=== PATIENT | female | born 1950 | race Caucasian/White ===

== ENCOUNTER → 2016-08-03 | Outpatient (CLI) | payer MEDICAID ==
--- NOTE | 2016-08-03 13:26 | US ---
EXAMINATION: Nonvascular soft tissue ultrasound of the right popliteal fossa HISTORY: Pain COMPARISON: None TECHNIQUE: Grayscale and color Doppler images obtained in the region of concern. FINDINGS: There is no abnormal mass or fluid collection noted. No Shepherd's cyst or aneurysm. Normal-a ppearing musculature is noted within the region of pain. IMPRESSION: No sonographic abnormality noted within the right popliteal fossa.
== END ==
LOC: MW.US 10:26
PROVIDERS: ATTEND Family Medicine
DX: M25.561 Pain in right knee (principal)
CPT/HCPCS: 76881-26-RT; 76881-RT

== ENCOUNTER 2016-08-09 14:43 | Emergency (ER) | payer MEDICAID ==
[2016-08-09] MEDS ORDERED: Ketorolac 30 MG/ML SDV IVPUSH ONE (15:07)
[2016-08-09] MEDS ORDERED: Sodium Chloride 0.9% 1,000 ML IV ONE (15:07)
[2016-08-09] MEDS ORDERED: Ondansetron 4 MG/2 ML SDV IVPUSH ONE ×2 (15:07→15:57)
--- NOTE | 2016-08-09 15:07 | EDM.PDOC ---
ED HPI GI/ABDOMINAL - General Chief Complaint: Abdominal Pain Stated Complaint: STOMACH PAIN Time Seen by Provider: 08/09/16 15:01 Source of Information: Reports: Patient History Limitations: Reports: No limitations - History of Present Illness INITIAL COMMENTS - FREE TEXT/NARRATIVE: History of present illness: [66-year-old female presenting with a history of chronic progressive abdominal pain. She indicates that she has not been that concerned with address and as her PCP because sister had been somewhat low grade but over the last few days has gotten significantly worse, she feels bloated, with abdominal pain throughout the entire abdomen nonspecific to locale but she also indicates when she stands she has a significant amount of pelvic pressure as well. Patient indicates when she lies down at night she feels like she has this pressure building up in her chest and it makes her neck swell. She states that this last symptom has caused her a significant amount of anxiety and she would like to know what is going on.] Review of systems: As per history of present illness and below otherwise all systems reviewed and negative. Past medical history: As per history of present illness and as reviewed below otherwise noncontributory. Surgical history: As per history of present illness and as reviewed below otherwise noncontributory. Social history: No reported history of drug or alcohol abuse. Family history: As per history of present illness and as reviewed below otherwise noncontributory. Physical exam: HEENT: Atraumatic, normocephalic, pupils reactive, negative for conjunctival pallor or scleral icterus, mucous membranes moist, throat clear, neck supple, nontender, trachea midline. Lungs: Clear to auscultation, breath sounds equal bilaterally, chest nontender. Heart: S1S2, regular, negative for clicks, rubs, or JVD. Abdomen: Soft, nondistended, nontender. Negative for masses or hepatosplenomegaly. Negative for costovertebral tenderness. Pelvis: Stable nontender. Genitourinary: Deferred. Rectal: Deferred. Extremities: Atraumatic, negative for cords or calf pain. Neurovascular unremarkable. Neuro: Awake, alert, oriented. Cranial nerves II through XII unremarkable. Cerebellum unremarkable. Motor and sensory unremarkable throughout. Exam nonfocal. At 1550 patient indicated that she was having left arm pain, indicated she felt quite anxious, and indicated that she felt like her blood pressure was high because of the pain. EKG, as well as nitro paste and nitroglycerin sublingual as as well as morphine and Zofran. Patient has a significant amount of anxiety based on numerous factors inclusive finances, health status, and some false beliefs in risks related to medication and her parents chronic ill health secondary to diabetes. Patient indicates that the side effects of the medicine killed her parents. Risk benefit of various medication interventions discussed inclusive of hypertensive medicines and genetic propensity for hypertension but clearly had run in her family. Patient knowledge that she didn't desire to suffer from diseases which are the end result of uncontrolled hypertension inclusive of renal failure that her mother struggled with and agreed to take a blood pressure medicine here and followup with the primary care provider for outpatient management of a chronic disease process. Diagnostics: [CBC, CMP, troponin, EKG, chest x-ray, UA] Therapeutics: [Morphine, Zofran, IV fluid,] Impression: [Hypertension, anxiety] Plan: [Meds/followup] Definitive disposition and diagnosis as appropriate pending reevaluation and review of above. - Related Data Allergies/ADRs: Allergies Allergy/AdvReac Type Severity Reaction Status Date / Time cephalexin [From Keflex] Allergy Swelling Verified 08/09/16 15:06 codeine Allergy Headache Verified 08/09/16 15:06 Home Meds: Home Meds FLUoxetine [PROzac] 0 mg PO ASDIRECTED 08/09/16 [History] Metoprolol Tartrate 25 mg PO BID #28 tablet 08/09/16 [Rx] OLANZapine [Olanzapine] 5 mg PO DAILY 08/09/16 [History] Zolpidem Tartrate [Zolpidem Tartrate] 10 mg PO BEDTIME 08/09/16 [History] busPIRone [Buspar] 30 mg PO BID 08/09/16 [History] ED ROS GENERAL - Review of Systems Review Of Systems: See Below (The history of present illness) ED EXAM, GI/ABD - Physical Exam Exam: See Below (See history of present illness) Course - Vital Signs Last Recorded V/S: Last Vital Signs Temp 36.5 C 08/09/16 15:11 Pulse 81 08/09/16 18:09 Resp 18 08/09/16 15:11 BP 167/98 H 08/09/16 18:09 Pulse Ox 97 08/09/16 15:11 - Orders/Labs/Meds Orders: Active Orders 24 hr Category Date Time Status EKG Documentation Completion [RC] STAT Care 08/09/16 15:56 Active Labs: Laboratory Tests 08/09/16 08/09/16 08/09/16 Range/Units 15:41 15:41 15:41 WBC 6.24 (4.0-11.0) K/uL RBC 3.91 L (4.30-5.90) M/uL Hgb 12.5 (12.0-16.0) g/dL Hct 38.3 (36.0-46.0) % MCV 98.0 (80.0-98.0) fL MCH 32.0 (27.0-32.0) pg MCHC 32.6 (31.0-37.0) g/dL RDW Std Deviation 44.8 (28.0-62.0) fl RDW Coeff of Subhash 13 (11.0-15.0) % Plt Count 200 (150-400) K/uL MPV 10.50 (7.40-12.00) fL Neut % (Auto) 49.4 (48.0-80.0) % Lymph % (Auto) 41.8 H (16.0-40.0) % [place] % (Auto) 6.1 (0.0-15.0) % Eos % (Auto) 2.4 (0.0-7.0) % Baso % (Auto) 0.3 (0.0-1.5) % Neut # (Auto) 3.1 (1.4-5.7) K/uL Lymph # (Auto) 2.6 H (0.6-2.4) K/uL [place] # (Auto) 0.4 (0.0-0.8) K/uL Eos # (Auto) 0.2 (0.0-0.7) K/uL Baso # (Auto) 0.0 (0.0-0.1) K/uL Nucleated RBC % 0.0 /100WBC Nucleated RBCs # 0 K/uL Sodium 144 (136-146) mmol/L Potassium 3.7 (3.5-5.1) mmol/L Chloride 113 H (98-110) mmol/L Carbon Dioxide 21 (21-31) mmol/L BUN 13 (6.0-23.0) mg/dL Creatinine 0.8 (0.6-1.5) mg/dL Est Cr Clr Drug Dosing 58.77 mL/min Estimated GFR (MDRD) > 60.0 ml/min Glucose 95 (60-110) mg/dL Calcium 8.7 L (8.8-10.8) mg/dL Total Bilirubin 0.3 (0.1-1.5) mg/dL AST 28 (5-40) IU/L ALT 48 (8-54) IU/L Alkaline Phosphatase 68 (40-150) Troponin I < 0.10 (0.0-0.29) NG/ML Total Protein 6.8 (6.0-8.0) g/dL Albumin 3.9 (3.4-4.8) g/dL Globulin 2.9 (2.0-3.5) g/dL Albumin/Globulin Ratio 1.3 (1.3-2.8) Amylase 53 (10-90) U/L Lipase 55 (7-80) U/L Urine Color Urine Appearance Urine pH (5.0-8.0) Ur Specific [place] (1.001-1.035) Urine Protein (NEGATIVE) mg/dL Urine Glucose (UA) (NEGATIVE) mg/dL Urine Ketones (NEGATIVE) mg/dL Urine Occult Blood (NEGATIVE) Urine Nitrite (NEGATIVE) Urine Bilirubin (NEGATIVE) Urine Urobilinogen (<2.0) EU/dL Ur Leukocyte Esterase (NEGATIVE) Urine RBC (0-2/HPF) Urine WBC (0-5/HPF) Ur Epithelial Cells (NONE-FEW) Urine Bacteria (NEGATIVE) Urine Mucus (NONE-MOD) 08/09/16 Range/Units 15:50 WBC (4.0-11.0) K/uL RBC (4.30-5.90) M/uL Hgb (12.0-16.0) g/dL Hct (36.0-46.0) % MCV (80.0-98.0) fL MCH (27.0-32.0) pg MCHC (31.0-37.0) g/dL RDW Std Deviation (28.0-62.0) fl RDW Coeff of Subhash (11.0-15.0) % Plt Count (150-400) K/uL MPV (7.40-12.00) fL Neut % (Auto) (48.0-80.0) % Lymph % (Auto) (16.0-40.0) % [place] % (Auto) (0.0-15.0) % Eos % (Auto) (0.0-7.0) % Baso % (Auto) (0.0-1.5) % Neut # (Auto) (1.4-5.7) K/uL Lymph # (Auto) (0.6-2.4) K/uL [place] # (Auto) (0.0-0.8) K/uL Eos # (Auto) (0.0-0.7) K/uL Baso # (Auto) (0.0-0.1) K/uL Nucleated RBC % /100WBC Nucleated RBCs # K/uL Sodium (136-146) mmol/L Potassium (3.5-5.1) mmol/L Chloride (98-110) mmol/L Carbon Dioxide (21-31) mmol/L BUN (6.0-23.0) mg/dL Creatinine (0.6-1.5) mg/dL Est Cr Clr Drug Dosing mL/min Estimated GFR (MDRD) ml/min Glucose (60-110) mg/dL Calcium (8.8-10.8) mg/dL Total Bilirubin (0.1-1.5) mg/dL AST (5-40) IU/L ALT (8-54) IU/L Alkaline Phosphatase (40-150) Troponin I (0.0-0.29) NG/ML Total Protein (6.0-8.0) g/dL Albumin (3.4-4.8) g/dL Globulin (2.0-3.5) g/dL Albumin/Globulin Ratio (1.3-2.8) Amylase (10-90) U/L Lipase (7-80) U/L Urine Color YELLOW Urine Appearance CLEAR Urine pH 6.0 (5.0-8.0) Ur Specific [place] 1.020 (1.001-1.035) Urine Protein NEGATIVE (NEGATIVE) mg/dL Urine Glucose (UA) NEGATIVE (NEGATIVE) mg/dL Urine Ketones NEGATIVE (NEGATIVE) mg/dL Urine Occult Blood NEGATIVE (NEGATIVE) Urine Nitrite NEGATIVE (NEGATIVE) Urine Bilirubin NEGATIVE (NEGATIVE) Urine Urobilinogen 0.2 (<2.0) EU/dL Ur Leukocyte Esterase NEGATIVE (NEGATIVE) Urine RBC 0-1 (0-2/HPF) Urine WBC 0-2 (0-5/HPF) Ur Epithelial Cells FEW (NONE-FEW) Urine Bacteria FEW (NEGATIVE) Urine Mucus LIGHT (NONE-MOD) Meds: Medications Discontinued Medications Generic Name Dose Route Start Last Admin Trade Name Freq PRN Reason Stop Dose Admin Aspirin 324 mg 08/09/16 15:56 08/09/16 16:22 Aspirin PO 08/09/16 15:57 324 mg ONETIME ONE Administration Al Hydroxide/Mg Hydroxide 15 0 ml 08/09/16 15:15 08/09/16 16:02 ml/ Metoclopramide HCl 5 mg/ PO 08/09/16 15:16 1 each Lidocaine HCl 5 ml ONETIME ONE Administration Famotidine 20 mg 08/09/16 15:16 08/09/16 16:00 Pepcid IVPUSH 08/09/16 15:17 20 mg ONETIME ONE Administration Sodium Chloride 1,000 mls @ 999 mls/hr 08/09/16 15:07 08/09/16 15:53 Normal Saline IV 08/09/16 16:07 999 mls/hr STAT ONE Administration Ketorolac Tromethamine 30 mg 08/09/16 15:07 08/09/16 16:27 Toradol IVPUSH 08/09/16 15:08 30 mg ONETIME ONE Administration Lorazepam 1 mg 08/09/16 15:58 08/09/16 16:31 Ativan IVPUSH 08/09/16 15:59 1 mg ONETIME ONE Administration Metoprolol Succinate 50 mg 08/09/16 17:13 08/09/16 18:09 Toprol Xl PO 08/09/16 17:14 50 mg ONETIME ONE Administration Morphine Sulfate 4 mg 08/09/16 15:56 08/09/16 16:28 Morphine IV 08/09/16 15:57 Not Given ONETIME ONE Nitroglycerin 1 gm 08/09/16 15:56 08/09/16 18:09 Nitro-Bid 2% TOP 08/09/16 15:57 Not Given ONETIME ONE Nitroglycerin 0.4 mg 08/09/16 16:15 08/09/16 16:24 Nitrostat SL 08/09/16 16:26 0.4 mg Q5M PRN Administration Chest Pain Ondansetron HCl 8 mg 08/09/16 15:07 08/09/16 15:54 Zofran IVPUSH 08/09/16 15:08 8 mg ONETIME ONE Administration Ondansetron HCl 8 mg 08/09/16 15:57 08/09/16 16:01 Zofran IVPUSH 08/09/16 15:58 Not Given ONETIME ONE Departure - Departure Time of Disposition: 19:00 Disposition: Home, Self-Care 01 Condition: good Clinical Impression: Hypertension, Anxiety Prescriptions: Metoprolol Tartrate 25 mg PO BID #28 tablet Referrals: Lizbeth Figueroa MD [Primary Care Provider] - Forms: ED Department Discharge Additional Instructions: The following information is given to patients seen in the emergency department who are being discharged to home. This information is to outline your options for follow-up care. We provide all patients seen in our emergency department with a follow-up referral. The need for follow-up, as well as the timing and circumstances, are variable depending upon the specifics of your emergency department visit. If you don't have a primary care physician on staff, we will provide you with a referral. We always advise you to contact your personal physician following an emergency department visit to inform them of the circumstance of the visit and for follow-up with them and/or the need for any referrals to a consulting specialist. The emergency department will also refer you to a specialist when appropriate. This referral assures that you have the opportunity for follow-up care with a specialist. All of these measure are taken in an effort to provide you with optimal care, which includes your follow-up. Under all circumstances we always encourage you to contact your private physician who remains a resource for coordinating your care. When calling for follow-up care, please make the office aware that this follow-up is from your recent emergency room visit. If for any reason you are refused follow-up, please contact the [facility] Emergency Department at and asked to speak to the emergency department charge nurse. It has been noted to have significantly elevated blood pressure as discussed during your visit It is imperative that you monitor this outpatient and seek treatment with your primary care provider to best achieve a balance between medication and symptoms seemed to concern you Please call in the next one to 2 days with your PCP to establish a followup appointment Return to the ED as needed as discussed - My Orders Last 24 Hours: My Active Orders 08/09/16 15:56 EKG Documentation Completion [RC] STAT - Assessment/Plan Last 24 Hours: My Active Orders 08/09/16 15:56 EKG Documentation Completion [RC] STAT
[2016-08-09] MEDS ORDERED: Alum Hydrox/Mag Hydrox/Simeth 15 ML, Metoclopramide 5 MG, Lidocaine 2% 5 ML PO ONE ×3 (15:15)
[2016-08-09] MEDS ORDERED: Famotidine 20 MG/2 ML SDV IVPUSH ONE (15:16)
[2016-08-09] MEDS ORDERED: Morphine 10 MG/ML Syringe IV ONE (15:56)
[2016-08-09] MEDS ORDERED: Nitroglycerin 0.4 MG Tab.SL SL ONE (15:56)
[2016-08-09] MEDS ORDERED: Aspirin 81 MG Tab.Chew PO ONE (15:56)
[2016-08-09] MEDS ORDERED: Nitroglycerin 2% Oint 1 GM UD Packet TOP ONE (15:56)
[2016-08-09] MEDS ORDERED: LORazepam 2 MG/ML MDV IVPUSH ONE (15:58)
[2016-08-09] MEDS ORDERED: Nitroglycerin 0.4 MG Tab.SL SL PRN (16:15)
[2016-08-09 16:21] LABS: CHLORIDE,CL 113 mmol/L (98-110); SODIUM,NA 144 mmol/L (136-146)
[2016-08-09] MEDS ORDERED: Metoprolol Succinate 50 MG Tab.ER PO ONE (17:13)
[2016-08-09 19:21] VITALS: BP 185/102
== END 2016-08-09 19:10 | disposition home or self-care (01) ==
LOC: MW.ED 14:43
DX: I10 Essential (primary) hypertension (principal); F41.9 Anxiety disorder, unspecified; Z79.899 Other long term (current) drug therapy; Z88.5 Allergy status to narcotic agent; Z88.1 Allergy status to other antibiotic agents
CPT/HCPCS: 36415; 80053; 81001; 82150; 83690; 84484; 85025; 93005; 96361; 96374; 96375; 99284; A9270; J1885; J2060; J2405; J7040

== ENCOUNTER → 2016-08-09 | Outpatient (CLI) | payer MEDICAID ==
--- NOTE | 2016-08-09 16:29 | CR ---
EXAMINATION: Right knee HISTORY: Pain COMPARISON: None TECHNIQUE: 4 views FINDINGS/IMPRESSION: There is no acute osseous abnormality, dislocation, or fracture. Bone mineraliz ation and joint spaces are grossly preserved. No joint effusion or soft tissue swelling.
== END | disposition home or self-care (01) ==
LOC: MW.CHORTHO 11:13
PROVIDERS: ATTEND Orthopaedic Surgery
DX: M25.561 Pain in right knee (principal)
CPT/HCPCS: 73564-26-RT; 73564-RT

== ENCOUNTER → 2016-08-13 | Outpatient (CLI) | payer MEDICAID ==
--- NOTE | 2016-08-14 16:11 | MR ---
EXAM DATE: 08/13/16 PATIENT'S AGE: 66 Patient: GURPREET TURK Facility: [place], [place] Site Site : [id number] Study: MRI Knee Right [id number]/[id number] 6:40:29 PM Ordering Physician: NATALY RENNER MD Final Report: Indication: Knee pain. Comparison: None. Technique: Axial PD fat-sat, sagittal PD, T1 and PD fat sat and coronal PD and PD fat-sat sequences. Findings: Medial compartment: Meniscus: Hazy intermediate signal blunts the free margin inner half of the posterior horn. The body and anterior horn are normal. Root is intact. Articular cartilage: Uniform thickness and signal. Medial collateral ligament: Intact. Cruciate ligaments: ACL: Intact. PCL: Intact. Lateral compartment: Meniscus: Intermediate signal blunts the free margin of the mid through anterior body with horizontal indistinct intermediate signal extending into the substance. Intermediate signal in the substance of the anterior horn. Posterior horn appears normal. Articular cartilage: Uniform thickness and signal, well maintained for age. Lateral collateral complex: Intact. Patellofemoral compartment: Near full-thickness grade 3 fissure central lateral facet. Grade 2/3 fissures upper to mid median ridge and medial facet. Diffuse grade 1 chondromalacia signal lateral facet and median ridge. Trochlear cartilage shows some low-grade 2 thinning at the inferior margin. Extensor mechanism: Distal quadriceps tendon and patellar tendon are intact. Mild lateral subluxation and borderline patella Magda. Capsule and retinacula appear intact. Bones and soft tissues: Trace joint effusion. No synovitis or loose body. Small periarticular ganglion superficial to the origin of the medial gastrocnemius. Small focus of scar sat T2 marrow edema posterior lateral rim of the tibial plateau. No definite fracture or bone lesion. Impression: 1. Degenerative mild tearing medial and lateral meniscus as described. 2. Low-grade osteoarthritis patellofemoral compartment. 3. Mild lateral patellar subluxation. Borderline patella [place]. Clinical correlation lateral tracking. 4. Small focus of nonspecific T2 marrow edema posterior lateral tibial plateau rim. 5. Small nonspecific effusion. Dictated by Orlando Le MD @ Aug 14 2016 2:32PM (Electronic Signature) Report Signed by Proxy and Original Signed Document filed in the Medical Record. MTDD
== END ==
LOC: MW.MRI 17:11
PROVIDERS: ATTEND Orthopaedic Surgery
DX: M25.561 Pain in right knee (principal); S83.241A Other tear of medial meniscus, current injury, right knee, initial encounter; S83.281A Other tear of lateral meniscus, current injury, right knee, initial encounter; M17.11 Unilateral primary osteoarthritis, right knee
CPT/HCPCS: 73721-26-RT; 73721-RT

== ENCOUNTER → 2016-08-29 | Outpatient (CLI) | payer MEDICAID ==
[2016-08-29 09:15] LABS: CHLORIDE,CL 107 mmol/L (98-110); SODIUM,NA 142 mmol/L (136-146)
== END ==
LOC: MW.CHFP 08:33
PROVIDERS: ATTEND Family Medicine
DX: R94.5 Abnormal results of liver function studies (principal); E78.00 Pure hypercholesterolemia, unspecified; R73.9 Hyperglycemia, unspecified
CPT/HCPCS: 36415; 80053; 80061; 83036

== ENCOUNTER 2017-08-31 17:16 | Emergency (ER) | payer MEDICARE, MEDICAID ==
[2017-08-31] MEDS ORDERED: Sodium Chloride 0.9% 2.5 ML Syringe FLUSH PRN (17:22)
[2017-08-31] MEDS ORDERED: Sodium Chloride 0.9% 10 ML Syringe FLUSH PRN (17:22)
--- NOTE | 2017-08-31 17:25 | EDM.PDOC ---
ED HPI GENERAL MEDICAL PROBLEM - General Chief Complaint: Cardiovascular Problem Stated Complaint: STOMACH PAIN/LT ARM TINGLY/CHEST PAIN Time Seen by Provider: 08/31/17 17:17 Source of Information: Reports: Patient History Limitations: Reports: No Limitations - History of Present Illness INITIAL COMMENTS - FREE TEXT/NARRATIVE: History of present illness: []Patient started having left upper quadrant abdominal pain and effort arm pain followed by numbness. She arrived hyperventilating and anxious. Patient states she has had problems with anxiety. She denies any chest pain, dizziness or syncope. Review of systems: As per history of present illness and below otherwise all systems reviewed and negative. Past medical history: As per history of present illness and as reviewed below otherwise noncontributory. Surgical history: As per history of present illness and as reviewed below otherwise noncontributory. Social history: No reported history of drug or alcohol abuse. Family history: As per history of present illness and as reviewed below otherwise noncontributory. Physical exam: General: Well developed, well nourished anxious hyperventilating HEENT: Atraumatic, normocephalic, pupils reactive, negative for conjunctival pallor or scleral icterus, mucous membranes moist, throat clear, neck supple, nontender, trachea midline. Lungs: Clear to auscultation, breath sounds equal bilaterally, chest nontender. Heart: S1S2, regular, negative for clicks, rubs, or JVD. Abdomen: Soft, nondistended, mild left upper quadrant tenderness no rebound or guarding. Negative for masses or hepatosplenomegaly. Negative for costovertebral tenderness. Pelvis: Stable nontender. Genitourinary: Deferred. Rectal: Deferred. Extremities: Atraumatic, negative for cords or calf pain. Neurovascular unremarkable. Neuro: Awake, alert, oriented. Cranial nerves II through XII unremarkable. Cerebellum unremarkable. Motor and sensory unremarkable throughout. Exam nonfocal. Diagnostics: []Blood pressure 167/86. CBC normal, chemistry normal, troponin negative EKG sinus tachycardia 110 without ischemic changes, chest x-ray negative Therapeutics: []Ativan, IV fluids, after IV fluids patient reexamined and abdominal pain subsided. Impression: []Anxiety attack Plan: []Continue regular meds follow up with primary care Definitive disposition and diagnosis as appropriate pending reevaluation and review of above. - Related Data Allergies Allergy/AdvReac Type Severity Reaction Status Date / Time cephalexin [From Keflex] Allergy Swelling Verified 08/09/16 15:06 codeine Allergy Headache Verified 08/09/16 15:06 Home Meds: Home Meds FLUoxetine [PROzac] 0 mg PO ASDIRECTED 08/09/16 [History] Metoprolol Tartrate 25 mg PO BID #28 tablet 08/09/16 [Rx] OLANZapine [Olanzapine] 5 mg PO DAILY 08/09/16 [History] Zolpidem Tartrate 10 mg PO BEDTIME 08/09/16 [History] busPIRone [Buspar] 30 mg PO BID 08/09/16 [History] Past Medical History Cardiovascular History: Reports: Hypertension Genitourinary History: Reports: UTI, Recurrent Psychiatric History: Reports: Anxiety, Bipolar, Depression, Psych Hospitalization(s), Suicide Attempt, Suicidal Ideation - Past Surgical History Female Surgical History: Reports: Hysterectomy Social & Family History - Family History Family Medical History: Noncontributory ED ROS GENERAL - Review of Systems Review Of Systems: See Below (See history of present illness) ED EXAM, GENERAL - Physical Exam Exam: See Below (See history of present illness) Course - Orders/Labs/Meds Orders: Active Orders 24 hr Category Date Time Status EKG Documentation Completion [RC] STAT Care 08/31/17 17:22 Active Chest 1V Frontal [CR] Stat Exams 08/31/17 17:23 Taken Sodium Chloride 0.9% [Saline Flush] Med 08/31/17 17:22 Active 10 ml FLUSH ASDIRECTED PRN Sodium Chloride 0.9% [Saline Flush] Med 08/31/17 17:22 Active 2.5 ml FLUSH ASDIRECTED PRN Saline Lock Insert [OM.PC] Stat Oth 08/31/17 17:22 Ordered Medication Orders Sodium Chloride (Saline Flush) 10 ml FLUSH ASDIRECTED PRN PRN Reason: Keep Vein Open Sodium Chloride (Saline Flush) 2.5 ml FLUSH ASDIRECTED PRN PRN Reason: Keep Vein Open Labs: Laboratory Tests 08/31/17 08/31/17 08/31/17 Range/Units 17:35 17:35 17:35 WBC 4.97 (4.0-11.0) K/uL RBC 4.39 (4.30-5.90) M/uL Hgb 14.4 (12.0-16.0) g/dL Hct 41.2 (36.0-46.0) % MCV 93.8 (80.0-98.0) fL MCH 32.8 H (27.0-32.0) pg MCHC 35.0 (31.0-37.0) g/dL RDW Std Deviation 42.0 (28.0-62.0) fl RDW Coeff of Subhash 12 (11.0-15.0) % Plt Count 182 (150-400) K/uL MPV 11.10 (7.40-12.00) fL Neut % (Auto) 53.8 (48.0-80.0) % Lymph % (Auto) 37.2 (16.0-40.0) % [place] % (Auto) 7.0 (0.0-15.0) % Eos % (Auto) 1.6 (0.0-7.0) % Baso % (Auto) 0.4 (0.0-1.5) % Neut # (Auto) 2.7 (1.4-5.7) K/uL Lymph # (Auto) 1.9 (0.6-2.4) K/uL [place] # (Auto) 0.4 (0.0-0.8) K/uL Eos # (Auto) 0.1 (0.0-0.7) K/uL Baso # (Auto) 0.0 (0.0-0.1) K/uL Nucleated RBC % 0.0 /100WBC Nucleated RBCs # 0 K/uL Sodium 140 (136-145) mmol/L Potassium 3.4 L (3.5-5.1) mmol/L Chloride 105 (98-107) mmol/L Carbon Dioxide 21.4 (21.0-32.0) mmol/L BUN 18 (7.0-18.0) mg/dL Creatinine 0.9 (0.6-1.0) mg/dL Est Cr Clr Drug Dosing TNP Estimated GFR (MDRD) > 60.0 ml/min Glucose 135 H (74-106) mg/dL Calcium 9.5 (8.5-10.1) mg/dL Total Bilirubin 0.4 (0.2-1.0) mg/dL AST 31 (15-37) IU/L ALT 45 (14-63) IU/L Alkaline Phosphatase 59 (46-116) U/L Troponin I < 0.050 (0.000-0.056) ng/mL Total Protein 7.6 (6.4-8.2) g/dL Albumin 4.3 (3.4-5.0) g/dL Globulin 3.3 (2.0-3.5) g/dL Albumin/Globulin Ratio 1.3 (1.3-2.8) Lipase 151 (73-393) U/L Meds: Medications Generic Name Dose Route Start Last Admin Trade Name Freq PRN Reason Stop Dose Admin Sodium Chloride 10 ml 08/31/17 17:22 Saline Flush FLUSH ASDIRECTED PRN Keep Vein Open Sodium Chloride 2.5 ml 08/31/17 17:22 Saline Flush FLUSH ASDIRECTED PRN Keep Vein Open Discontinued Medications Generic Name Dose Route Start Last Admin Trade Name Freq PRN Reason Stop Dose Admin Sodium Chloride 500 mls @ 999 mls/hr 08/31/17 17:27 08/31/17 17:46 Normal Saline IV 08/31/17 17:57 999 mls/hr .Bolus ONE Administration Lorazepam 0.5 mg 08/31/17 17:30 08/31/17 17:45 Ativan IVPUSH 08/31/17 17:31 0.5 mg ONETIME ONE Administration Ondansetron HCl 4 mg 08/31/17 17:30 08/31/17 17:46 Zofran IVPUSH 08/31/17 17:31 4 mg ONETIME ONE Administration Departure - Departure Time of Disposition: 18:50 Disposition: Home, Self-Care 01 Condition: Good Clinical Impression: Anxiety attack Abdominal pain Qualifiers: Abdominal location: left upper quadrant Qualified Code(s): R10.12 - Left upper quadrant pain Referrals: PCP,None [Primary Care Provider] - Forms: ED Department Discharge Additional Instructions: The following information is given to patients seen in the emergency department who are being discharged to home. This information is to outline your options for follow-up care. We provide all patients seen in our emergency department with a follow-up referral. The need for follow-up, as well as the timing and circumstances, are variable depending upon the specifics of your emergency department visit. If you don't have a primary care physician on staff, we will provide you with a referral. We always advise you to contact your personal physician following an emergency department visit to inform them of the circumstance of the visit and for follow-up with them and/or the need for any referrals to a consulting specialist. The emergency department will also refer you to a specialist when appropriate. This referral assures that you have the opportunity for follow-up care with a specialist. All of these measure are taken in an effort to provide you with optimal care, which includes your follow-up. Under all circumstances we always encourage you to contact your private physician who remains a resource for coordinating your care. When calling for follow-up care, please make the office aware that this follow-up is from your recent emergency room visit. If for any reason you are refused follow-up, please contact the [facility] Emergency Department at and asked to speak to the emergency department charge nurse. Follow up with primary care continue regular meds return if symptoms worsen or change. - My Orders Last 24 Hours: My Active Orders 08/31/17 17:22 EKG Documentation Completion [RC] STAT Sodium Chloride 0.9% [Saline Flush] 10 ml FLUSH ASDIRECTED PRN Sodium Chloride 0.9% [Saline Flush] 2.5 ml FLUSH ASDIRECTED PRN Saline Lock Insert [OM.PC] Stat 08/31/17 17:23 Chest 1V Frontal [CR] Stat - Assessment/Plan Last 24 Hours: My Active Orders 08/31/17 17:22 EKG Documentation Completion [RC] STAT Sodium Chloride 0.9% [Saline Flush] 10 ml FLUSH ASDIRECTED PRN Sodium Chloride 0.9% [Saline Flush] 2.5 ml FLUSH ASDIRECTED PRN Saline Lock Insert [OM.PC] Stat 08/31/17 17:23 Chest 1V Frontal [CR] Stat
[2017-08-31] MEDS ORDERED: Sodium Chloride 0.9% 500 ML IV ONE (17:27)
[2017-08-31] MEDS ORDERED: LORazepam 2 MG/ML SDV IVPUSH ONE (17:30)
[2017-08-31] MEDS ORDERED: Ondansetron 4 MG/2 ML SDV IVPUSH ONE (17:30)
[2017-08-31 18:21] LABS: CHLORIDE,CL 105 mmol/L (98-107); SODIUM,NA 140 mmol/L (136-145)
[2017-08-31 19:17] VITALS: BP 165/90
--- NOTE | 2017-09-02 19:03 | CR ---
EXAM DATE: 08/31/17 PATIENT'S AGE: 67 Patient: GURPREET TURK Facility: [facility] [facility], [place] Site . Site : 1950 Study: XRay Chest [id number] 5:47:25 PM Ordering Physician: Nathaniel Rojas Final Report: CHEST 1 VIEW AP INDICATION: Chest pain IMPRESSION: Normal heart size and vascular pattern. Lungs are clear of focal opacities. No pneumothorax or pleural abnormality. Dictated by Demian Walker MD @ Aug 31 2017 6:05PM (Electronic Signature) Report Signed by Proxy. MARYAN
== END 2017-08-31 19:10 | disposition home or self-care (01) ==
LOC: MW.ED 17:16
DX: F41.0 Panic disorder [episodic paroxysmal anxiety] (principal); R10.12 Left upper quadrant pain; I10 Essential (primary) hypertension; F31.9 Bipolar disorder, unspecified; Z88.5 Allergy status to narcotic agent; Z88.1 Allergy status to other antibiotic agents; Z79.899 Other long term (current) drug therapy; Z87.440 Personal history of urinary (tract) infections; Z90.710 Acquired absence of both cervix and uterus
CPT/HCPCS: 36415; 71045; 80053; 83690; 84484; 85025; 93005; 96361; 96374; 96375; 99283; J2060; J2405; J7040

== ENCOUNTER 2017-12-30 09:41 | Day surgery (SDC) | payer MEDICARE, MEDICAID ==
[~2017-12-30 09:41] MED LIST: Lactated Ringers 1,000 ML IV SCH; Lidocaine 2% 5 ML SDV ONE; Midazolam 1 MG/ML 2 ML SDV ONE; Propofol 200 MG/20 ML SDV ONE; Sodium Chloride 0.9% 10 ML Syringe FLUSH PRN; Sodium Chloride 0.9% 2.5 ML Syringe FLUSH PRN; fentaNYL 100 MCG/2 ML SDV ONE
--- NOTE | 2017-12-30 10:34 | PCM.PREANE ---
Preanesthetic Assessment - Anesthesia/Transfusion/Family Hx Anesthesia History: Prior Anesthesia Without Reaction Family History of Anesthesia Reaction: No Transfusion History: No Prior Transfusion(s) - Review of Systems General: No Symptoms Pulmonary: No Symptoms Cardiovascular: No Symptoms Gastrointestinal: No Symptoms Neurological: No Symptoms Other: Reports: None - Physical Assessment O2 Sat by Pulse Oximetry: 95 Respiratory Rate: 16 Vital Signs: Last Vital Signs Temp 36.1 C 12/30/17 10:14 Pulse 96 12/30/17 10:14 Resp 16 12/30/17 10:14 BP 138/81 12/30/17 10:29 Pulse Ox 95 12/30/17 10:14 Height: 1.6 m Weight: 66.678 kg ASA Class: 2 Mental Status: Alert & Oriented x3 Airway Class: Mallampati = 1 Dentition: Reports: Normal Dentition ROM/Head Extension: Full Lungs: Clear to Auscultation, Normal Respiratory Effort Cardiovascular: Regular Rate, Regular Rhythm - Allergies Allergies/Adverse Reactions: Allergies Allergy/AdvReac Type Severity Reaction Status Date / Time cephalexin [From Keflex] Allergy Swelling Verified 12/26/17 13:49 codeine Allergy Headache Verified 12/26/17 13:49 - Blood Blood Available: No - Anesthesia Plan Pre-Op Medication Ordered: None - Acknowledgements Anesthesia Type Planned: MAC Pt an Appropriate Candidate for the Planned Anesthesia: Yes Alternatives and Risks of Anesthesia Discussed w Pt/Guardian: Yes Pt/Guardian Understands and Agrees with Anesthesia Plan: Yes Additional Comments: PMH: aud ihn remission, anx/dep/ptsd, dm, gerd-barretts, htn, hld, PreAnesthesia Questionnaire HEENT History: Reports: Allergic Rhinitis, Cataract, Other (See Below) Other HEENT History: wears glasses Cardiovascular History: Reports: Hypertension Gastrointestinal History: Reports: Colon Polyp, GERD, Hiatal Hernia, Other (See Below) Other Gastrointestinal History: hx of Barretts Esophagus Genitourinary History: Reports: UTI, Recurrent 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: Musculoskeletal History: Reports: Arthritis, Back Pain, Chronic, Fracture, Neck Pain, Chronic Other Musculoskeletal History: hx of fx right toe Neurological History: Reports: Migraines, Seizure Other Neuro History: hx of seizures as a child and "blackouts" as a teenager Psychiatric History: Reports: Anxiety, Bipolar, Depression, Panic Attack, PTSD - Past Surgical History HEENT Surgical History: Reports: Adenoidectomy, Tonsillectomy GI Surgical History: Reports: Colonoscopy, EGD Female Surgical History: Reports: Hysterectomy - SUBSTANCE USE Smoking Status *Q: Former Smoker Tobacco Use Within Last Twelve Months: No Days Per Week of Alcohol Use: 3 Number of Drinks Per Day: 2 Total Drinks Per Week: 6 Recreational Drug Use History: No - HOME MEDS Home Medications: Home Meds FLUoxetine [PROzac] 40 mg PO QAM 08/09/16 [History] busPIRone [Buspar] 30 mg PO BID 08/09/16 [History] FLUoxetine HCl [Prozac] 20 mg PO BEDTIME 12/26/17 [History] Fluticasone Propionate [Flonase Allergy Relief] 1 spray NASBOTH ASDIRECTED PRN 12/26/17 [History] Lansoprazole [Prevacid] 30 mg PO DAILY 12/26/17 [History] Metoprolol Tartrate 50 mg PO QPM 12/26/17 [History] Temazepam 15 mg PO BEDTIME 12/26/17 [History] diphenhydrAMINE [Benadryl] 50 mg PO BEDTIME 12/26/17 [History] - CURRENT (IN HOUSE) MEDS Current Meds: Current Medications Lactated Ringer's (Ringers, Lactated) 1,000 mls @ 125 mls/hr IV ASDIRECTED AGNIESZKA Last Admin: 12/30/17 10:19 Dose: 125 mls/hr Sodium Chloride (Saline Flush) 10 ml FLUSH ASDIRECTED PRN PRN Reason: Keep Vein Open Sodium Chloride (Saline Flush) 2.5 ml FLUSH ASDIRECTED PRN PRN Reason: Keep Vein Open Sodium Chloride (Saline Flush) 10 ml FLUSH ASDIRECTED PRN PRN Reason: Keep Vein Open Sodium Chloride (Saline Flush) 2.5 ml FLUSH ASDIRECTED PRN PRN Reason: Keep Vein Open Discontinued Medications Fentanyl (Sublimaze) Confirm Administered Dose 100 mcg .ROUTE .STK-MED ONE Stop: 12/30/17 08:51 Lidocaine (Xylocaine-Mpf 2%) Confirm Administered Dose 5 ml .ROUTE .STK-MED ONE Stop: 12/30/17 08:51 Midazolam HCl (Versed 1 Mg/Ml) Confirm Administered Dose 2 mg .ROUTE .STK-MED ONE Stop: 12/30/17 09:24 Propofol (Diprivan 20 Ml) Confirm Administered Dose 400 mg .ROUTE .[facility]-MED ONE Stop: 12/30/17 08:51
--- NOTE | 2017-12-30 10:50 | PCM.OPNOTE ---
- General Post-Op/Procedure Note Date of Surgery/Procedure: 12/30/17 Operative Procedure(s): Diagnostic EGD Findings: small hiatal hernia associated with reflux. No evidence of esophagitis Pre Op Diagnosis: baretts esophagus Post-Op Diagnosis: hiatal hernia with reflux Anesthesia Technique: JACKIE Primary Surgeon: Milagros Torres Condition: Good
--- NOTE | 2017-12-30 11:01 | PCM.POSTAN ---
POST ANESTHESIA ASSESSMENT - MENTAL STATUS Mental Status: Alert, Oriented - RESPIRATORY Respiratory Status: Respiratory Rate WNL, Airway Patent, O2 Saturation Stable - CARDIOVASCULAR CV Status: Pulse Rate WNL, Blood Pressure Stable - GASTROINTESTINAL GI Status: No Symptoms - PAIN Pain Score: 0 - POST OP HYDRATION Hydration Status: Adequate & Stable
--- NOTE | 2017-12-30 11:06 | PCM48HPAN ---
Post Anesthesia Note - EVALUATION WITHIN 48HRS OF ANESTHETIC Vital Signs in Normal Range: Yes Patient Participated in Evaluation: Yes Respiratory Function Stable: Yes Airway Patent: Yes Cardiovascular Function Stable: Yes Hydration Status Stable: Yes Pain Control Satisfactory: Yes Nausea and Vomiting Control Satisfactory: Yes Mental Status Recovered: Yes Resp Rate: 18
[2017-12-30 11:26] VITALS: BP 119/77
--- NOTE | 2017-12-31 11:09 | OR ---
SURGEON: FRANKLYN VASQUEZ MD DATE OF PROCEDURE: 12/30/2017 PREOPERATIVE DIAGNOSIS: History of Gray's esophagus. POSTOPERATIVE DIAGNOSIS: Hiatal hernia with reflux. PROCEDURE PERFORMED: Diagnostic EGD. ANESTHESIA: MAC. INSTRUMENT USED: Olympus endoscope. EXTENT OF EXAM: To the second portion of duodenum. PREPARATION: Good. LIMITATIONS: None. INDICATION FOR EXAMINATION: The patient is a 67-year-old female with a history of Gray's esophagus. She has had followup EGDs, which showed resolution of her Gray's. Recently, her PPI medications were switched. After this, she developed severe reflux again. She went back on her original medication and her symptoms have improved, but it has been greater than three years since her last EGD. I discussed the need for a diagnostic EGD. We discussed the procedure, expected perioperative course, and risks. The patient verbalized understanding and wishes to proceed. PROCEDURE IN DETAIL: The patient was brought to the endoscopy suite and placed in a beach chair position. A time-out was completed verifying the patient's name, age, date of , allergies, and procedure to be performed. Monitored anesthesia care was induced and continuous oxygen was provided via nasal cannula throughout the procedure. A bite block was placed in the patient's mouth prior to administration of the anesthetic. After adequate sedation was achieved, a well lubricated endoscope was placed in the patient's mouth and advanced under direct visualization to the second portion of duodenum. This appeared normal and a photograph was taken. The scope was then fully withdrawn while examining the color, texture, anatomy, and integrity of the mucosa of the upper GI tract. The duodenal mucosa appeared normal. The scope was then brought into the stomach and a photograph was taken of the GE junction as well as the pylorus. The pylorus appeared normal, however, the patient was noted to have a small hiatal hernia at the GE junction. The gastric mucosa itself had no evidence of overt inflammation or ulceration. Biopsies were taken of the gastric antrum, body, and fundus and sent for histologic review and H. pylori testing. The scope was brought into the distal esophagus. The patient was again noted to have a small hiatal hernia and while the scope within the distal esophagus, I noted reflux of gastric contents up into the esophagus. The distal esophageal mucosa appeared healthy and there was no evidence of any dysplasia or inflammation. A biopsy was taken of the esophageal mucosa. The remainder of the esophagus appeared normal. The scope was then removed and the procedure terminated. The patient tolerated the procedure well and was taken to PACU in stable condition. ENDOSCOPIC DIAGNOSIS: Small hiatal hernia with reflux. RECOMMENDATIONS: Follow up in clinic in 2 weeks. ELSIE JACKSON /[id number] MTDD
== END 2017-12-30 11:37 | disposition home or self-care (01) ==
LOC: MW.SDS 09:41
PROVIDERS: ATTEND Surgery
DX: K21.9 Gastro-esophageal reflux disease without esophagitis (principal); K29.50 Unspecified chronic gastritis without bleeding; K44.9 Diaphragmatic hernia without obstruction or gangrene; M83.9 Adult osteomalacia, unspecified; M85.80 Other specified disorders of bone density and structure, unspecified site; I10 Essential (primary) hypertension; E11.9 Type 2 diabetes mellitus without complications; E78.00 Pure hypercholesterolemia, unspecified; K76.0 Fatty (change of) liver, not elsewhere classified; F41.9 Anxiety disorder, unspecified; F31.9 Bipolar disorder, unspecified; F43.10 Post-traumatic stress disorder, unspecified; Z79.899 Other long term (current) drug therapy; Z88.5 Allergy status to narcotic agent; Z87.891 Personal history of nicotine dependence
CPT/HCPCS: 43239; J2250; J2704; J3010; J7120; 00731; 88305; 88312

== ENCOUNTER 2018-10-16 11:04 | Emergency (ER) | payer MEDICARE, MEDICAID ==
[2018-10-16] MEDS ORDERED: Ketorolac 30 MG/ML SDV IM ONE (11:24)
--- NOTE | 2018-10-16 11:28 | EDM.PDOC ---
ED HPI GENERAL MEDICAL PROBLEM - General Chief Complaint: Back Pain or Injury Stated Complaint: back pain Time Seen by Provider: 10/16/18 11:15 Source of Information: Reports: Patient History Limitations: Reports: No Limitations - History of Present Illness INITIAL COMMENTS - FREE TEXT/NARRATIVE: HISTORY AND PHYSICAL: History of present illness: Patient is a 68-year-old female presents to the ED today with concern of low back pain. Patient states 2-3 days ago she was helping her daughter move a small couch up a flight of stairs. Patient states she was bent over holding the couch for a period of time and since then has had issues with low back pain. Patient states she has chronic low back pain and often has flares. Patient states this feels similar to her typical flare-ups. Patient denies any direct injury or trauma. Patient denies any saddle anesthesia, loss or retention of bowel or bladder function. Patient denies any other symptoms or concerns at this time. Patient denies fever, chills, chest pain, shortness of breath, or cough. Denies headache, neck stiff ness, change in vision, syncope, or near syncope. Denies nausea, vomiting, abdominal pain, diarrhea, constipation, or dysuria. Has not noted any blood in urine or stool. Patient has been eating and drinking appropriately. Review of systems: As per history of present illness and below otherwise all systems reviewed and negative. Past medical history: As per history of present illness and as reviewed below otherwise noncontributory. Surgical history: As per history of present illness and as reviewed below otherwise noncontributory. Social history: See social history for further information Family history: As per history of present illness and as reviewed below otherwise noncontributory. Physical exam: General: Patient is alert, oriented, and in no acute distress. Patient sitting comfortably on exam table. HEENT: Atraumatic, normocephalic, pupils equal and reactive bilaterally, negative for conjunctival pallor or scleral icterus, mucous membranes moist, TMs normal bilaterally, throat clear, neck supple, nontender, trachea midline. No drooling or trismus noted. No meningeal signs. No hot potato voice noted. Lungs: Clear to auscultation, breath sounds equal bilaterally, chest nontender. Heart: S1S2, regular rate and rhythm without overt murmur Abdomen: Soft, nondistended, nontender. Negative for masses or hepatosplenomegaly. Negative for costovertebral tenderness. Pelvis: Stable nontender. Genitourinary: Deferred. Rectal: Deferred. Skin: Intact, warm, dry. No lesions or rashes noted. Extremities: Atraumatic, negative for cords or calf pain. Neurovascular unremarkable. No obvious deformities of the complete spine. No step-offs, crepitus on palpation of the complete spine. Moderate pain to palpation of the paraspinous muscles of the lumbar spine but negative pain to palpation of the spinous process of the complete spine. Neuro: Awake, alert, oriented. Cranial nerves II through XII unremarkable. Cerebellum unremarkable. Motor and sensory unremarkable throughout. Exam nonfocal. Notes: Discussed the importance for follow-up with a primary care provider. Voices understanding and is agreeable to plan of care. Denies any further questions or concerns at this time. Diagnostics: Lumbar XR Therapeutics: Toradol, Norflex Prescription: Diclofenac, Flexeril, Bactrim DS Impression: Acute on chronic low back pain Urinary tract infection Plan: 1. Rest, ice, elevate the affected extremity. You can apply ice and or heat 15 minutes on, 15 minutes off. 2. Tylenol as directed for pain management or discomfort. Take medication as prescribed 3. Follow up with the primary care provider as discussed. Return to the ED as needed and as discussed. Definitive disposition and diagnosis as appropriate pending reevaluation and review of above. Lower Back Pain Score (Numeric/FACES): 10 - Related Data Allergies Allergy/AdvReac Type Severity Reaction Status Date / Time cephalexin [From Keflex] Allergy Swelling Verified 10/16/18 11:12 codeine Allergy Headache Verified 10/16/18 11:12 tramadol Allergy Swelling Verified 10/16/18 11:12 Home Meds: Home Meds FLUoxetine [PROzac] 40 mg PO QAM 08/09/16 [History] busPIRone [Buspar] 30 mg PO BID 08/09/16 [History] FLUoxetine HCl [Prozac] 20 mg PO BEDTIME 12/26/17 [History] Fluticasone Propionate [Flonase Allergy Relief] 1 spray NASBOTH ASDIRECTED PRN 12/26/17 [History] Metoprolol Tartrate 50 mg PO QPM 12/26/17 [History] Temazepam 15 mg PO BEDTIME 12/26/17 [History] diphenhydrAMINE [Benadryl] 50 mg PO BEDTIME 12/26/17 [History] Acetaminophen 2 tab PO ASDIRECTED PRN 03/06/18 [History] Biotin 1 tab PO DAILY 03/06/18 [History] Melatonin 10 mg PO BEDTIME 03/06/18 [History] [place]-3S/DHA/Epa/Fish Oil [[place]-3 Fish Oil 1,400 mg Sfgl] 1 tab PO DAILY [History] Omeprazole Magnesium [Prilosec Otc] 40 mg PO DAILY 03/06/18 [History] Cyclobenzaprine [Flexeril] 10 mg PO TID PRN #10 tab 10/16/18 [Rx] Diclofenac Sodium [Voltaren] 75 mg PO BIDMEALS PRN #15 tab.cr 10/16/18 [Rx] Past Medical History HEENT History: Reports: Allergic Rhinitis, Cataract, Other (See Below) Other HEENT History: wears glasses Cardiovascular History: Reports: High Cholesterol, Hypertension Gastrointestinal History: Reports: Colon Polyp, GERD, Hiatal Hernia, Other (See Below) (cholecystitis) Other Gastrointestinal History: hx of Barretts Esophagus Genitourinary History: Reports: UTI, Recurrent 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: Musculoskeletal History: Reports: Arthritis, Back Pain, Chronic, Fracture, Neck Pain, Chronic Other Musculoskeletal History: hx of fx right toe Neurological History: Reports: Migraines, Neuropathy, Peripheral, Seizure Other Neuro History: hx of seizures as a child and "blackouts" as a teenager Psychiatric History: Reports: Anxiety, Bipolar, Depression, Panic Attack, PTSD Endocrine/Metabolic History: Reports: Other (See Below) Other Endocrine/Metabolic History: "borderline diabetic" Hematologic History: Reports: Blood Transfusion(s) Dermatologic History: Reports: Other (See Below) Other Dermatologic History: patches of dry skin on rt arm - Infectious Disease History Infectious Disease History: Reports: Chicken Pox, Measles, Mumps - Past Surgical History Head Surgeries/Procedures: Reports: None HEENT Surgical History: Reports: Adenoidectomy, Tonsillectomy Social & Family History - Family History Family Medical History: Noncontributory - Tobacco Use Smoking Status *Q: Former Smoker Years of Tobacco use: 25 Used Tobacco, but Quit: Yes Month/Year Tobacco Last Used: 10mo - Caffeine Use Caffeine Use: Reports: Coffee - Recreational Drug Use Recreational Drug Use: No ED ROS GENERAL - Review of Systems Review Of Systems: ROS reveals no pertinent complaints other than HPI. ED EXAM,LOWER BACK PAIN/INJURY - Physical Exam Exam: See Below (See dictation) Course - Vital Signs Last Recorded V/S: Last Vital Signs Temp 36.0 C 10/16/18 11:12 Pulse 77 10/16/18 11:12 Resp 18 10/16/18 11:12 BP 106/69 10/16/18 11:12 Pulse Ox 95 10/16/18 11:12 - Orders/Labs/Meds Orders: Active Orders 24 hr Category Date Time Status CULTURE URINE [RM] Stat Lab 10/16/18 12:13 Received Labs: Laboratory Tests 10/16/18 Range/Units 12:13 Urine Color YELLOW Urine Appearance SLT CLOUDY Urine pH 5.5 (5.0-8.0) Ur Specific [place] 1.025 (1.001-1.035) Urine Protein NEGATIVE (NEGATIVE) mg/dL Urine Glucose (UA) NEGATIVE (NEGATIVE) mg/dL Urine Ketones NEGATIVE (NEGATIVE) mg/dL Urine Occult Blood NEGATIVE (NEGATIVE) Urine Nitrite NEGATIVE (NEGATIVE) Urine Bilirubin SMALL H (NEGATIVE) Urine Ictotest NEGATIVE Urine Urobilinogen 0.2 (<2.0) EU/dL Ur Leukocyte Esterase SMALL H (NEGATIVE) Urine RBC 0-1 (0-2/HPF) Urine WBC 10-15 (0-5/HPF) Ur Epithelial Cells FEW (NONE-FEW) Urine Bacteria RARE (NEGATIVE) Urine Mucus LIGHT (NONE-MOD) Meds: Medications Discontinued Medications Generic Name Dose Route Start Last Admin Trade Name Christian PRN Reason Stop Dose Admin Ketorolac Tromethamine 30 mg 10/16/18 11:24 10/16/18 11:36 Toradol IM 10/16/18 11:25 30 mg ONETIME ONE Administration Orphenadrine Citrate 60 mg 10/16/18 11:24 10/16/18 11:37 Norflex IM 10/16/18 11:25 60 mg NOW STA Administration Departure - Departure Time of Disposition: 12:43 Disposition: Home, Self-Care 01 Clinical Impression: Acute exacerbation of chronic low back pain Urinary tract infection Qualifiers: Urinary tract infection type: acute cystitis Hematuria presence: without hematuria Qualified Code(s): N30.00 - Acute cystitis without hematuria - Discharge Information Prescriptions: Cyclobenzaprine [Flexeril] 10 mg PO TID PRN #10 tab PRN Reason: Spasms Diclofenac Sodium [Voltaren] 75 mg PO BIDMEALS PRN #15 tab.cr PRN Reason: Pain Referrals: PCP,None [Primary Care Provider] - Forms: ED Department Discharge Additional Instructions: The following information is given to patients seen in the emergency department who are being discharged to home. This information is to outline your options for follow-up care. We provide all patients seen in our emergency department with a follow-up referral. The need for follow-up, as well as the timing and circumstances, are variable depending upon the specifics of your emergency department visit. If you don't have a primary care physician on staff, we will provide you with a referral. We always advise you to contact your personal physician following an emergency department visit to inform them of the circumstance of the visit and for follow-up with them and/or the need for any referrals to a consulting specialist. The emergency department will also refer you to a specialist when appropriate. This referral assures that you have the opportunity for follow-up care with a specialist. All of these measure are taken in an effort to provide you with optimal care, which includes your follow-up. Under all circumstances we always encourage you to contact your private physician who remains a resource for coordinating your care. When calling for follow-up care, please make the office aware that this follow-up is from your recent emergency room visit. If for any reason you are refused follow-up, please contact the [facility] Emergency Department at and asked to speak to the emergency department charge nurse. [facility] [address] [place] [id number] [id number] 1. Rest, ice, elevate the affected extremity. You can apply ice and or heat 15 minutes on, 15 minutes off. 2. Tylenol as directed for pain management or discomfort. Take medication as prescribed 3. Follow up with the primary care provider as discussed. Return to the ED as needed and as discussed. - My Orders Last 24 Hours: My Active Orders 10/16/18 12:13 CULTURE URINE [RM] Stat - Assessment/Plan Last 24 Hours: My Active Orders 10/16/18 12:13 CULTURE URINE [RM] Stat
--- NOTE | 2018-10-16 12:07 | CR ---
EXAMINATION: Lumbar spine HISTORY: Pain COMPARISON: 07/26/2016. TECHNIQUE: AP and lateral views obtained. FINDINGS: There is minimal wedging of the T11 vertebral body otherwise the vertebral body heights and disc spaces appear grossly maintained. Bone mineralization is normal. Very early osteophyte formation. SI joints are symmetric. IMPRESSION: 1. Minimal wedging at T11 otherwise grossly unremarkable lumbar spine.
[2018-10-16] MEDS ORDERED: Phenazopyridine 200 MG Tab PO ONE (12:50)
[2018-10-16 13:01] VITALS: BP 127/68
== END 2018-10-16 13:01 | disposition home or self-care (01) ==
LOC: MW.ED 11:04
DX: N30.00 Acute cystitis without hematuria (principal); M54.5 Low back pain; G89.29 Other chronic pain; I10 Essential (primary) hypertension; E78.00 Pure hypercholesterolemia, unspecified; F31.9 Bipolar disorder, unspecified; F41.9 Anxiety disorder, unspecified; Z87.891 Personal history of nicotine dependence; Z88.1 Allergy status to other antibiotic agents; Z88.5 Allergy status to narcotic agent; Z88.6 Allergy status to analgesic agent; Z79.899 Other long term (current) drug therapy
CPT/HCPCS: 72100; 81001; 87086; 96372; 99283; A9270; J1885; J2360